=== PATIENT | female | born 1960 | race Caucasian/White ===

== ENCOUNTER 2019-04-04 07:28 | Day surgery (SDC) | payer OTHER ==
[~2019-04-04 07:28] MED LIST: CEFAZOLIN 2 GM/50 ML (PMX) 50 ML IVPB; SOD CHLORIDE 0.9% 1,000 ML IV
[2019-04-04] MEDS ORDERED: LIDOCAINE 2% (SDV) 5 ML INJ (10:20)
[2019-04-04] MEDS ORDERED: FENTAnyl 50 MCG/ML VIAL (10:20)
[2019-04-04] MEDS ORDERED: SUCCINYLCHOLINE CHLORIDE 100 MG/5 ML SYG IV (10:20)
[2019-04-04] MEDS ORDERED: CEFAZOLIN 1 GM INJ (10:20)
[2019-04-04] MEDS ORDERED: ONDANSETRON 4 MG INJ (10:40)
[2019-04-04] MEDS ORDERED: DEXAMETHASONE 4 MG/ML 5 ML INJ (10:40)
[2019-04-04] MEDS ORDERED: FAMOTIDINE 20 MG INJ (10:40)
[2019-04-04] MEDS ORDERED: METOCLOPRAMIDE 10 MG INJ (10:40)
[2019-04-04] MEDS ORDERED: FENTAnyl 50 MCG/ML VIAL IV ×3 (11:00)
[2019-04-04] MEDS ORDERED: MEPERIDINE 25 MG INJ IV (11:00)
[2019-04-04] MEDS ORDERED: ONDANSETRON 4 MG INJ IV (11:00)
[2019-04-04] MEDS ORDERED: OXYCODONE/ACETAMINOPHEN (5/325) TAB PO ×2 (11:00)
[2019-04-04] MEDS: BUPIVACAINE 0.5%/EPI (SDV) 30 ML INJ (11:01)
== END 2019-04-04 12:50 | disposition home or self-care (01) ==
LOC: SDS 07:28
DX: C44.509 Unspecified malignant neoplasm of skin of other part of trunk (principal); E66.9 Obesity, unspecified; R94.31 Abnormal electrocardiogram [ECG] [EKG]
CPT/HCPCS: 14000; 71045; 93005